=== PATIENT | female | born 1995 | race Caucasian/White ===

== ENCOUNTER 2018-05-27 05:00 | Inpatient (IN) | payer MEDICAID, SELFPAY ==
[2018-05-27] MEDS: Lactated Ringers 1,000 ML 50 ML IV ×2 (05:40→06:20)
[2018-05-27 06:17] LABS: Hematocrit 33.8 % (37-47); Hemoglobin 10.7 g/dl (12.0-15.0); Mean Corp Hgb Conc 31.7 g/gl (32-36); Mean Corpuscular Hgb 25.9 pg (27.0-32.0); Mean Corpuscular Volume 81.8 fL (81-99); Mean Platelet Vol. 10.3 fl (6.2-12.0); Platelet Count 252 K/mm3 (150-450); RBC Distribution Width CV 14.9 % (11.6-14.6); Red Blood Count 4.13 M/mm3 (4.2-5.4); Scan Indicated on CBC? Y/N NO; White Blood Count 12.8 K/mm3 (4.4-11.0)
[2018-05-27 06:37] VITALS: BMI 30.5
[2018-05-27] MEDS: fentaNYL-bupivacaine (epidural) 100 ML BAG EPIDURAL (06:42)
--- NOTE | 2018-05-27 06:52 | NURSING ---
0651-limited care d/t insurance, only had 2 visits.
--- NOTE | 2018-05-27 07:24 | PCM.HP.OB ---
- Problem List (1) Insufficient care Status: Acute (2) Active labor at term Status: Acute (3) Short interval between pregnancies affecting , antepartum Status: Acute History Date of Admission: 05/27/18 Final MARITZA: 05/22/18 Final MARITZA Source: LMP Gestational age: 40 Weeks and 5 Days History of this : This is a 23 year-old, G [2], P [1001], at 40 weeks gestational age. Presented to L&D with contractions that started at 0400 this am and arrived at [facility] at 0500 and 6cm. No family at bedside. Allergies No Known Allergies Allergy (Verified 05/27/18 06:20) Home Medications: Home Medications Pnv No.103/Folic/Om3s/Fish Oil [ Gummies] 2 each PO 05/27/18 Smoking Status: Never smoker Alcohol: None Number of Fetus(es): 1 Heart Tracin, moderate variability, accels, no decels, Category 1 TOCO: every 2-3 minutes History Past Pregnancies: Past Pregnancies Delivery Date Name GA/Weeks Outcome Route Weight Infant Gender Labor Length Anesthesia Delivery Location Provider FOB Labs: GC/CT negative A positive RPR nonreactive HBsAG negative Rubella Immune HIV nonreactive GBS unknown-not done Anatomy U/S at 24week with incomplete views of heart, right and left humeus, right and left lower arms and hands. Rest of anatomy appears normal. Expected Infant Delivery Method: Spontaneous Vaginal Review of Systems Constitutional: Denies: Chills, Fever, Weight Change HEENT: Denies: Head Aches, Sinus Congestion, Sinus Drainage Cardiovascular: Denies: Chest Pain, Palpitations Respiratory: Denies: Cough, Shortness of breath at rest, Sputum production Gastrointestinal: Denies: Nausea, Vomiting Genitourinary: Denies: Dysuria Neurological: Denies: Numbness, Tingling, Focal weakness Psychiatric: Denies: Anxiety, Depression, Homicidal Ideations, Suicidal Ideations Physical Exam General: Alert, Oriented x3 HEENT: Atraumatic, Normocephalic Cardiovascular: Regular rate, Regular Rhythm, No murmurs Lungs: Clear to auscultation, Normal air movement, No rhonchi, No wheeze Abdomen: Gravid Extremities:: No edema Neurological: Deep Tendon Reflexes 2+/4 and Symmetrical. Negative for: Clonus TOBACCO SCRAP SIFTER: Normal external genitalia Estimated gestational size: Appropriate for gestational size Presentation: Cephalic Cervix Dilation (cm): 8 - per nursing Station: -2 Effacement (%): 85 Assessment/Plan All Active Problems Insufficient care (Acute) Active labor at term (Acute) Short interval between pregnancies affecting , antepartum (Acute) This is a 23 year-old, G [2], P [1001], at 40 weeks gestational age. A:Active Labor Category 1 FHT P:1) Admit to L&D 2) Routine labs. Urine tox screen. Epidural for pain management. 3) GBS unknown, rapid GBS sent 4) to manage labor, notified of limited PN care and patient status.
--- NOTE | 2018-05-27 07:31 | HP.PCM_ITS ---
- Problem List (1) Insufficient care Status: Acute (2) Active labor at term Status: Acute (3) Short interval between pregnancies affecting , antepartum Status: Acute History Date of Admission: 05/27/18 Final MARITZA: 05/22/18 Final MARITZA Source: LMP Gestational age: 40 Weeks and 5 Days History of this : This is a 23 year-old, G [2], P [1001], at 40 weeks gestational age. Presented to L&D with contractions that started at 0400 this am and arrived at [facility] at 0500 and 6cm. No family at bedside. Allergies No Known Allergies Allergy (Verified 05/27/18 06:20) Home Medications: Home Medications Pnv No.103/Folic/Om3s/Fish Oil [ Gummies] 2 each PO 05/27/18 Smoking Status: Never smoker Alcohol: None Number of Fetus(es): 1 Heart Tracin, moderate variability, accels, no decels, Category 1 TOCO: every 2-3 minutes History Past Pregnancies: Past Pregnancies Delivery Date Name GA/Weeks Outcome Route Weight Infant Gender Labor Length Anesthesia Delivery Location Provider FOB Labs: GC/CT negative A positive RPR nonreactive HBsAG negative Rubella Immune HIV nonreactive GBS unknown-not done Anatomy U/S at 24week with incomplete views of heart, right and left humeus, right and left lower arms and hands. Rest of anatomy appears normal. Expected Infant Delivery Method: Spontaneous Vaginal Review of Systems Constitutional: Denies: Chills, Fever, Weight Change HEENT: Denies: Head Aches, Sinus Congestion, Sinus Drainage Cardiovascular: Denies: Chest Pain, Palpitations Respiratory: Denies: Cough, Shortness of breath at rest, Sputum production Gastrointestinal: Denies: Nausea, Vomiting Genitourinary: Denies: Dysuria Neurological: Denies: Numbness, Tingling, Focal weakness Psychiatric: Denies: Anxiety, Depression, Homicidal Ideations, Suicidal Ideations Physical Exam General: Alert, Oriented x3 HEENT: Atraumatic, Normocephalic Cardiovascular: Regular rate, Regular Rhythm, No murmurs Lungs: Clear to auscultation, Normal air movement, No rhonchi, No wheeze Abdomen: Gravid Extremities:: No edema Neurological: Deep Tendon Reflexes 2+/4 and Symmetrical. 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 A:Active Labor Category 1 FHT P:1) Admit to L&D 2) Routine labs. Urine tox screen. Epidural for pain management. 3) GBS unknown, rapid GBS sent 4) to manage labor, notified of limited PN care and patient status.
[2018-05-27 07:35] LABS: Group B Strep DNA By PCR Negative (Negative); Internal Control PASS; Probe Check PASS; Specimen Processing Control PASS
--- NOTE | 2018-05-27 07:57 | PCM.PN.BLA ---
Progress Note pt seen at bedside VE performed- AROM performed clear fluid. after discussion with patient only had 2 visit with [facility] in [place]- EDC 05/27/18 based on LMP, 20 wk ultrasound states 05/22/18 as EDC. reviewed with patient that only difference of 5 days will keep EDC 05/27/18. Epidural in place and patient is comfortable.
[2018-05-27 08:49] LABS: Amphetamine Urine VISTA NEGATIVE (<1000 ng/mL); Barbiturate Urine VISTA NEGATIVE (< 200 ng/mL); Benzodiazepine Urine VISTA NEGATIVE (< 200 ng/mL); Cocaine Urine VISTA NEGATIVE (< 300 ng/mL); Ecstacy Urine VISTA NEGATIVE (< 500 ng/mL); Methadone Urine VISTA NEGATIVE (< 300 ng/mL); PCP Urine VISTA NEGATIVE (< 25 ng/mL); THC Urine VISTA NEGATIVE (< 50 ng/mL); Vista UDS pH Range 7
[2018-05-27] MEDS: Ondansetron 4 MG/2 ML Vial IV (09:01)
[2018-05-27] MEDS: Oxytocin 30 units/NS 500 ml 30 UNITS/500 ML IV.SOLN 334 UNITS IV (10:22)
--- NOTE | 2018-05-27 10:42 | PCM.OB.VAG ---
Vaginal Delivery Maternal Presentation: Active Labor Amniotic Membrane Rupture Type: Artificial Amniotic Fluid Description: Clear Final MARITZA: 05/27/18 Final MARITZA Source: LMP Gestational age: 40 Weeks and 0 Days Date of Procedure: 05/27/18 Pre-Operative Diagnosis: term gestation, poor care, active labor Post-Operative Diagnosis: same, live male Surgery/ Procedure Performed: Spontaneous Vaginal Delivery Type of Anesthesia: Epidural Description of Procedure: Head delivered, shoulder dystocia recognized- legs placed in Delia position, extra staff called- anterior shoulder not released with Delia- Suprapubic pressure applied and at this time shoulder released and delivered with gentle downward traction. Shoulder dystocia time approx 5 seconds- vigorous at time of delivery. Delayed cord clamping performed. Placenta delivered without complications. Presentation: Vertex Placental Delivery Description: Spontaneous Placenta Disposition: [facility] Cord Vessel Description: 3 Vessels Cord Entanglement: None Drain: Heath to straight drain Estimated Blood Loss: 250 A gender: Male (1 minute): 8 (5 minute): 8 Episiotomy Description: None Laceration: Vaginal Extension/lac - repaired with 2-0 vicryl - bleeding noted- figure of eight suture placed for hemostasis, 1st degree Medications given after delivery: IV Pitocin Complications: - - mild shoulder dystocia - delivered with delia and suprapubic pressure
--- NOTE | 2018-05-27 10:46 | OP.PCM_ITS ---
Vaginal Delivery Maternal Presentation: Active Labor Amniotic Membrane Rupture Type: Artificial Amniotic Fluid Description: Clear Final MARITZA: 05/27/18 Final MARITZA Source: LMP Gestational age: 40 Weeks and 0 Days Date of Procedure: 05/27/18 Pre-Operative Diagnosis: term gestation, poor care, active labor Post-Operative Diagnosis: same, live male Surgery/ Procedure Performed: Spontaneous Vaginal Delivery Type of Anesthesia: Epidural Description of Procedure: Head delivered, shoulder dystocia recognized- legs placed in Delia position, extra staff called- anterior shoulder not released with Delia- Suprapubic pressure applied and at this time shoulder released and delivered with gentle downward traction. Shoulder dystocia time approx 5 seconds- vigorous at time of delivery. Delayed cord clamping performed. Placenta delivered without co mplications. Presentation: Vertex Placental Delivery Description: Spontaneous Placenta Disposition: [facility] Cord Vessel Description: 3 Vessels Cord Entanglement: None Drain: Heath to straight drain Estimated Blood Loss: 250 A gender: Male (1 minute): 8 (5 minute): 8 Episiotomy Description: None Laceration: Vaginal Extension/lac - repaired with 2-0 vicryl - bleeding noted- figure of eight suture placed for hemostasis, 1st degree Medications given after delivery: IV Pitocin Complications: - - mild shoulder dystocia - delivered with delia and suprapubic pressure
[2018-05-27] MEDS: Oxytocin 30 units/NS 500 ml 30 UNITS/500 ML IV.SOLN 167 UNITS IV (10:53)
[2018-05-27] MEDS: 0.9% Saline Lock 10 ML Syringe IV (11:51)
[2018-05-27 16:00] VITALS: BP 110/62; PULSE 96; RESP 16; TEMP 37.9
[2018-05-27 16:30] VITALS: TEMP 36.6
[2018-05-27] MEDS: Ibuprofen 600 MG Tablet PO (17:29)
[2018-05-27 20:20] VITALS: BP 116/67; PULSE 83; RESP 16; TEMP 37.6; O2SAT 97
[2018-05-27] MEDS: Acetaminophen 500 MG Tablet 1000 MG PO (20:30)
[2018-05-28] VITALS: BP 105/70; PULSE 91; RESP 14; TEMP 36.9; O2SAT 97
[2018-05-28 04:00] VITALS: BP 103/59; PULSE 90; RESP 16; TEMP 37; O2SAT 96
--- NOTE | 2018-05-28 07:55 | PCM.PN.OB ---
Patient Problems: Active and Suspected Problems Insufficient care (Acute) Active labor at term (Acute) Short interval between pregnancies affecting , antepartum (Acute) Subjective: pt seen at bedside, doing well. pt reports good pain control. lochia mild. Breast feeding well. - Physical Exam General: Alert, Oriented x3 Abdomen: Soft, Non Tender, Non-Distended, - - fundus firm Extremities: No Calf Tenderness Vital Signs Temp Pulse Resp BP Pulse Ox 98.6 F 90 16 103/59 L 96 05/28/18 04:00 05/28/18 04:00 05/28/18 04:00 05/28/18 04:00 05/28/18 04:00 Oxygen Delivery Method Room Air Weight: 75.8 kg Body Mass Index (BMI) 30.5 Intake and Output for Last 24 Hours 05/26/18 05/27/18 05/28/18 23:59 23:59 23:59 Intake Total 1941 / 1941 Output Total 800 / 800 Balance 1141 / 1141 Laboratory Tests Past 24 Hrs 05/27/18 08:00 Urine Opiates Screen NEGATIVE Urine Methadone Screen NEGATIVE Ur Barbiturates Screen NEGATIVE Ur Phencyclidine Scrn NEGATIVE Ur Amphetamines Screen NEGATIVE U Methamphetamin-MDMA NEGATIVE U Benzodiazepines Scrn NEGATIVE Urine Cocaine Screen NEGATIVE U Cannabinoids Screen NEGATIVE Ur Drug Screen Comment Medical Necessity - Tobacco Use Smoking Status: Never smoker Assessment/Plan All Active Problems Insufficient care (Acute) Active labor at term (Acute) Short interval between pregnancies affecting , antepartum (Acute) PPD#1, doing well routine care pain mgmt dc home today
--- NOTE | 2018-05-28 07:58 | DCINST_ITS ---
Discharge Diet: No Restrictions Discharge Activity: Return to Normal Activity, May not drive while taking narcotic pain medications., May Shower May resume sexual activity in: 4-6 weeks Additional Activity Instructions:: Nothing in the vagina for 4-6 weeks. You may return to work/school in 6 weeks. Call your doctor if your incision/area has: Continuous Slow Oozing, Sudden Increased Bleeding, Increased Pain/ Swelling, Increased Redness, Foul Smelling Discharge Additional Instructions: If you experience any of the following, contact your healthcare provider. * Bleeding that soaks a pad every hour for 2 hours * Fever 100.4 or higher * Unrelieved incision or abdominal pain * Swelling, redness, discharge or bleeding from your incision or episiotomy site * Your incision begins to separate * Problems urinating (including inability to urinate or burning while urinating). * Visual changes * Severe headache * Flu-like symptoms * Pain or redness in one of both of your breasts * Pain, warmth, tenderness or swelling in your legs, especially the calf area * Frequent nausea and vomiting * Symptoms of depression or anxiety If you experience any of the following, call 911 or go to the nearest Emergency Room. * Chest pain * Problems breathing * Seizure activity * Partial or complete paralysis of a body part, slurred speech, weakness or drooping of the face, or a sudden inability to walk or hold your balance Allergies/Adverse Reactions: Allergies No Known Allergies Allergy (Verified 05/27/18 06:20) Medications to take at Discharge Pnv No.103/Folic/Om3s/Fish Oil [ Gummies] 2 each PO 05/27/18 When: Call to make an appointment with your doctor in 6 weeks. If you had elevated Blood Pressure or 4th degree laceration you will need to be seen in 2 weeks. Test Results: Test results from this visit will be discussed in further detail at your follow- up appointment, if applicable.
[2018-05-28 08:58] VITALS: BP 103/57; PULSE 86; RESP 16; TEMP 36.8
[2018-05-28] MEDS: Ibuprofen 600 MG Tablet PO (09:07)
[2018-05-28] MEDS: Senna/Docusate Sodium 1 Tablet PO (09:08)
[2018-05-28 14:45] VITALS: BP 112/64; PULSE 97; RESP 12; TEMP 36.9
--- NOTE | 2018-05-28 17:16 | CASEMGMT ---
Social Work Assessment Labor and Delivery Unit Date of Referral: 05/27/2017 Time of Referral: 1630 Referred By: Monica Jordan RN; Dr. Thompson Date of Intervention: 05/28/2018 Time of Intervention: 1410 Reason for Referral: limited care; history of child loss History obtained from: medical records, mother of baby (MOB) and father of baby (FOB). Household composition: MOB and FOB report to live together in a home, no issues with housing or necessities to live. MOB and FOB intend to take baby to this home at discharge. Patient's parent/guardian status: Alexander DOAN (age 22) is to FOKhai Mccoy (age 22) for 2.5 years. Privately, OLIMPIA denies any form of abuse, control, or intimidations in this relationship and describes FOB as ?the best .? MOB and FOB share two children together. Ema was born in the end of 2016/beginning of 2017. Ema unexpectedly in November of 2017. , who delivered this admission is to be named Kartik Guzman. Medical History: OLIMPIA is G2, P1 to 2 after delivering Kartik. care was limited to scant with 2 visits, one at 20 weeks (December) and then another at 23.6 weeks (January). care this at [facility] O[facility]YN office. Baby born at 40.5 weeks, weighed 8 pounds 11 ounces, Apgars 8 and 8 at 1 and 5 minutes of life. Educational Status: MOB reports completed through the 9th or 10th grade, that was home schooled. MOB denies any issues with reading, writing or learning comprehension. Financial Status: OLIMPIA used to work in retail, not currently employed. FOB works fulltime. Supplies: Report to have needed supplies including car seat, crib, bassinet, diapers, wipes, breast pump. Childcare/Caregiver(s): MOB and then help from FOB and from family when needed. Transportation: No reported issues. Programs/Agencies Involved: OLIMPIA has Medicaid at this time. NO other agency involvement currently. Parents do agree to have a referral to the [facility] for a nurse visit. Children Services/Legal Issues: MOB denies any history of children services involvement. BREANNE has had recent legal charges related to Ema?s and is now on probation, no fci time served. Behavioral Health Issues: Mental Health History: MOB denies any history of depression, anxiety, or depression, but reports some fluctuations in mood after Ema . MOB reports no more than to be expected after the of a child however. MOB denies ever having any thoughts of suicide. No thoughts of harm to others endorsed either. Substance Use History: MOB denies any history of substance use, legal or illicit. MOB denies history of tobacco use. MOB also denies history for the FOB. Drug Screens: Maternal drug screen done and negative on 05-27-18. Baby urine drug screen done, negative. Meconium is pending. Family/Social Stressors: Closely spaced pregnancies, with first child dying at 6-7 months old in the summer of 2017. During conversation with parents together, FOB reports to be responsible for the child?s ; not much information offered otherwise, and social organization professor observed this was a tense subject for FOB. Privately MOB able to expand on situation in that baby was in FOB?s care the day of baby?s and that FOB forgot about the baby (child after being left for prolonged period in a car). MOB reports FOB has been charged, no restrictions on FOB being able to around children, no fci time served, and that FOB is on probation. During identified stressors above, the parents moved from [place] to [facility]. Also lack of care this , FOB reports due to issues with insurance an accessing Medicaid after losing private insurance. Support Systems: MOB and FOB both report to have good support system from both side of the family, both sets of parents, and confucianism family. MOB reports emotional support from FOB, MOB?s mom and sister. Depression/Shaken Baby/Safe Sleeping: MOB and FOB both reports knowledge of safe sleeping and able to give appropriate response on shaken baby prevention. Talked with MOB and FOB both about risk for depression, in both parents. Discussed risk factors and importance of seeking out help and support should symptoms arise. ASSESSMENT: Met with MOB and FOB together. Both pleasant and cooperative, engaging in conversation. FOB did tend to answer questions, but also respectful of MOB responding to questions. Mannerisms for both calm. Both teary eyed when talking about the loss of first child. FOB appearing tense when discussing of daughter and though not communication many details did voice being responsible for the child?s . FOB relaxed when social indicated that will not make FOB go through all the details of the situation. Privately, MOB tearful, did seem more relaxed and answered social organization professor?s questions about why FOB feels responsible for the child?s passing. MOB voiced that has no safety concerns with FOB, and reports that FOB was an attentive father to the first child and helpful to MOB in caring for the baby. MOB acknowledges that has had stress, and that emotions have been up and down during the . MOB receptive to taking resource information but declines actual referrals for counseling. MOB and FOB both reports that the confucianism has been very supportive in helping the parents with grief issues related to the child?s passing. MOB and FOB both agree to nurse visit. Accepted [facility] brochure as well as [facility] resources list and depression packet. Did let MOB know that sometimes children services do make home visits to families to ensure that all is being take care of and that parents are able to provide for the children. Let MOB know that it is a possibility that children services may follow up with family, considering nature of first child?s , to make sure parents are doing okay on care of baby. MOB reports that had been thinking this could be a possibility and accepted this possibility without issues. MOB and FOB both deny needs or concerns with home going. Emotional support given to parents in relation to loss of first child and stressor have occurred this past year. Update news gathering technician. Updated staff nurse. PLAN: MOB and baby to home. Resource packets provides for home going. Will call [facility] Children service due to history of child?s and limited care this . Will makes a nurse visit referral to [facility] Department. -RAISSA Melgar, PAYROLL TECHNICIAN
--- NOTE | 2018-05-28 17:16 | CASEMGMT ---
Addendum entered and electronically signed by Lois Hudson 06/05/18 16:44: 1. - mandated reproter letter received and no case being opened based on referral made though information documented in case of future concern. -JOSE Melgar, RESIDENT SERVICES SUPERVISOR Original Note: Social Work Labor and Delivery Referral to Yris Puckett at [facility] Children Services, . Referral due to limited care and due to mother of baby?s (MOB) first child dying just a few months ago, summer after being left in a car. Brief maternal and histories provided. Children services made aware of discharge timeframe of today or tomorrow. Plan: Make referral to [facility] for nurse visit. -JOSE Melgar, RESIDENT SERVICES SUPERVISOR
--- NOTE | 2018-05-30 08:17 | CASEMGMT ---
Social work Labor and Delivery Unit Faxed nurse visit to the [facility] on 05.29.18 at 1000. Faxed to confirmed fax at [phone]. No other services requested or indicted. -JOSE Melgar, SUBWAY GUARD
== END 2018-05-28 17:35 | disposition home or self-care (01) | DRG 560 ==
PROVIDERS: Advanced Practice Midwife; Obstetrics & Gynecology; Admitting Provider Obstetrics & Gynecology; Referring Provider Obstetrics & Gynecology; Visit Provider Obstetrics & Gynecology
DX: O66.0 Obstructed labor due to shoulder dystocia (principal); Z3A.40 40 weeks gestation of pregnancy; Z37.0 Single live birth; O70.0 First degree perineal laceration during delivery
CPT/HCPCS: 59050; 76815; 80307; 85027; 86850; 86900; 87081; 87653; 99218; J7120; A4216; G0378; J2405

== ENCOUNTER → 2020-05-23 | Outpatient (CLI) | payer MEDICAID, SELFPAY ==
[2020-05-26 03:07] LABS: Chlamydia By Nucleic Acid AMP Negative (Negative)
[2020-05-26 15:16] LABS: Gonococcus By Nucleic Acid AMP Negative (Negative)
[2020-05-27 21:42] LABS: HPV Reflexed? NOT INDICATED
== END | disposition home or self-care (01) ==
LOC: LABSPEC 16:27
PROVIDERS: Visit Provider Student in an Organized Health Care Education/Training Program
DX: Z32.01 Encounter for pregnancy test, result positive (principal); Z12.4 Encounter for screening for malignant neoplasm of cervix; Z11.3 Encounter for screening for infections with a predominantly sexual mode of transmission
CPT/HCPCS: 87491; 87591; 88175; G0145

== ENCOUNTER → 2020-06-03 15:50 | Outpatient (CLI) | payer MEDICAID, SELFPAY ==
[2020-06-03 16:18] LABS: Absolute Lymphocyte Count 1.36 X10^3/uL (0.83-4.51); Absolute Neutrophil Count 4.4 X10^3/uL (2.0-7.7); Basophil# 0.02 X10^3/uL; Basophil% 0.3 % (0-1); Eosinophil# 0.07 X10^3/uL; Eosinophils% 1.1 % (0-5); Hematocrit 38.4 % (37-47); Hemoglobin 12.6 g/dL (12.0-15.0); Lymphocyte # 1.36 X10^3/ul (4.0); Lymphocyte % 21.5 % (19-41); Mean Corp Hgb Conc 32.8 g/dL (32-36); Mean Corpuscular Hgb 28.6 pg (27.0-32.0); Mean Corpuscular Volume 87.1 fL (81-99); Monocyte# 0.43 X10^3/uL; Monocyte% 6.8 % (0-10); NRBC Flagged by Analyzer 0 % (0-5); Neutrophil # 4.42 X10^3/uL (2.7-7.7); Platelet Count 287 K/mm3 (150-450); RBC Distribution Width CV 13.3 % (11.6-14.6); RBC Distribution Width SD 42.4 fl (35.1-43.9); Red Blood Count 4.41 M/mm3 (4.2-5.4); White Blood Count 6.3 K/mm3 (4.4-11.0)
[2020-06-06 10:25] LABS: HIV - WCH Non-Reactive (Nonreactive); Hepatitis B Surface Antigen Non-Reactive (Nonreactive); Hepatitis C Antibody Non-Reactive (Nonreactive); Rubella IgG Reactive (Nonreactive)
[2020-06-09 03:02] LABS: Prenatal RPR NONREACTIVE (NONREACTIVE)
== END ==
PROVIDERS: Visit Provider Student in an Organized Health Care Education/Training Program
DX: Z34.91 Encounter for supervision of normal pregnancy, unspecified, first trimester (principal)
CPT/HCPCS: 36415; 85025; 86703; 86762; 86803; 87086; 87088; 87340

== ENCOUNTER → 2020-09-08 08:56 | Outpatient (CLI) | payer MEDICAID, SELFPAY ==
[2020-09-08 12:19] LABS: Hematocrit 36.2 % (37-47); Hemoglobin 11.2 g/dL (12.0-15.0); Mean Corp Hgb Conc 30.9 g/dL (32-36); Mean Corpuscular Volume 90.5 fL (81-99); Mean Platelet Vol. 10.7 fl (6.2-12.0); Platelet Count 242 K/mm3 (150-450); RBC Distribution Width CV 13.5 % (11.6-14.6); RBC Distribution Width SD 45.1 fl (35.1-43.9); White Blood Count 6.2 K/mm3 (4.4-11.0)
[2020-09-08 12:24] LABS: Glucose Challenge Gest 1H 50g 134 mg/dL (70-140)
== END ==
PROVIDERS: Visit Provider Student in an Organized Health Care Education/Training Program
DX: Z34.82 Encounter for supervision of other normal pregnancy, second trimester (principal)
CPT/HCPCS: 36415; 82950; 85027

== ENCOUNTER → 2020-12-05 | Outpatient (CLI) | payer MEDICAID, SELFPAY | END | disposition home or self-care (01) | LOC: LABSPEC 11:45 | PROVIDERS: Visit Provider Obstetrics & Gynecology | DX: Z36.85 Encounter for antenatal screening for Streptococcus B (principal) | CPT/HCPCS: 87081 ==

== ENCOUNTER 2021-01-01 02:40 | Inpatient (IN) | payer MEDICAID, SELFPAY ==
[2021-01-01] VITALS (47 sets, daily range): BP systolic 108–194; BP diastolic 56–139; PULSE 46–122; RESP 16–18; TEMP 36.9–37.3; O2SAT 83–100; BMI 29.9
[2021-01-01] MEDS: Lactated Ringers 500 ML 999 ML IV ×2 (02:45→03:52)
[2021-01-01 02:58] LABS: Absolute Lymphocyte Count 2.45 X10^3/uL (0.83-4.51); Absolute Neutrophil Count 7.3 X10^3/uL (2.0-7.7); Basophil# 0.04 X10^3/uL; Basophil% 0.4 % (0-1); Eosinophil# 0.06 X10^3/uL; Eosinophils% 0.6 % (0-5); Hemoglobin 12.4 g/dL (12.0-15.0); Lymphocyte # 2.45 X10^3/ul (0.83-4.51); Lymphocyte % 22.8 % (19-41); Mean Corpuscular Hgb 26.4 pg (27.0-32.0); Mean Corpuscular Volume 85.1 fL (81-99); Mean Platelet Vol. 11.2 fl (6.2-12.0); Monocyte# 0.77 X10^3/uL; Monocyte% 7.2 % (0-10); NRBC Flagged by Analyzer 0 % (0-5); Neutrophil # 7.33 X10^3/uL (2.7-7.7); Neutrophil % 68.1 % (47-70); Platelet Count 235 K/mm3 (150-450); RBC Distribution Width CV 14.9 % (11.6-14.6); RBC Distribution Width SD 45.9 fl (35.1-43.9); White Blood Count 10.8 K/mm3 (4.4-11.0)
[2021-01-01] MEDS: Ondansetron 4 MG/2 ML Vial IV (03:04)
[2021-01-01] MEDS: Lactated Ringers 1,000 ML 200 ML IV (03:16)
[2021-01-01] MEDS: fentaNYL-bupivacaine (epidural) 100 ML BAG EPIDURAL (03:55)
--- NOTE | 2021-01-01 04:49 | PCM.HP.OB ---
HPI - General General Date of Admission: 01/01/21 HPI Narrative MYRA LEARY, is a 25 F who presents in labor at 6/80/-2 on arrival. Maternal Data Information MARITZA Calculator Estimated Delivery Date Method Current WG Current Estimate 12/29/20 Manual 40w 3d PFSH PFSH Medical History Appendicitis Home Medications with DHA-Folic Acid 2 ea PO DAILY 05/27/18 [History Last Taken 1 Week Ago ~12/25/20] Allergy/AdvReac Type Severity Reaction Status Date / Time Penicillins Allergy Hives Verified 01/01/21 03:12 Surgical History Hx of appendectomy Social History Smoking Status: Never smoker History 4 Elective abortions 0 Hx Para 1 Spontaneous abortions 1 Hx # Term Pregnancies 2 Ectopic pregnancies 0 Hx # Pregnancies 0 Multiple births 0 # of living children 1 NST FHR Rate Baby A Baseline: 140 Variability:: Moderate Accelerations:: 15 x 15 Decelerations:: None NST Reactive:: Yes FHR Category:: Category I Uterine Activity:: 5/10 Vital Signs Vital Signs Vital Signs: 01/01/21 02:33 01/01/21 03:35 01/01/21 03:40 Temperature 98.8 F Temperature Source Temporal Pulse Rate 91 108 H 94 Blood Pressure 133/92 H 131/87 H 153/94 H BP Systolic 133 131 153 BP Diastolic 92 87 94 Pulse Ox 97 97 01/01/21 03:45 01/01/21 03:46 01/01/21 03:50 Temperature Temperature Source Pulse Rate 105 H 114 H Blood Pressure 129/73 H BP Systolic 129 BP Diastolic 73 Pulse Ox 93 99 01/01/21 03:51 01/01/21 03:52 01/01/21 03:55 Temperature Temperature Source Pulse Rate 100 110 H 92 Blood Pressure 194/139 H 136/69 H 126/84 H BP Systolic 194 136 126 BP Diastolic 139 69 84 Pulse Ox 96 01/01/21 03:59 01/01/21 04:00 01/01/21 04:05 Temperature Temperature Source Pulse Rate 88 89 Blood Pressure 126/58 H 119/64 BP Systolic 126 119 BP Diastolic 58 64 Pulse Ox 84 99 87 01/01/21 04:06 01/01/21 04:10 01/01/21 04:11 Temperature Temperature Source Pulse Rate 87 85 92 Blood Pressure 122/72 H 117/63 BP Systolic 122 117 BP Diastolic 72 63 Pulse Ox 99 100 01/01/21 04:16 01/01/21 04:17 01/01/21 04:18 Temperature 98.4 F Temperature Source Temporal Pulse Rate 102 H 98 Blood Pressure BP Systolic BP Diastolic Pulse Ox 94 88 01/01/21 04:19 01/01/21 04:21 01/01/21 04:22 Temperature Temperature Source Pulse Rate 101 H 98 Blood Pressure 108/67 115/60 BP Systolic 108 115 BP Diastolic 67 60 Pulse Ox 100 01/01/21 04:26 01/01/21 04:31 01/01/21 04:36 Temperature Temperature Source Pulse Rate 100 96 102 H Blood Pressure BP Systolic BP Diastolic Pulse Ox 100 100 99 01/01/21 04:41 01/01/21 04:46 Temperature Temperature Source Pulse Rate 94 107 H Blood Pressure BP Systolic BP Diastolic Pulse Ox 100 100 Weight Weight: 75.478 kg Body Mass Index (BMI) 29.9 Physical Exam Const alert, oriented x3 and no apparent distress Resp normal respiratory effort Cardio regular rate and regular rhythm GI soft to palpation and non-tender Inspection: gravid external exam normal Narrative: /-1, CEPHALIC, VILMA Labs Labs Labs: Blood Type A POSITIVE Antibody Screen NEGATIVE Hct 40.0 % (37-47) Hgb 12.4 g/dL (12.0-15.0) Rubella IgG Antibody Reactive (Nonreactive) Hep Bs Antigen Non-Reactive (Nonreactive) Neisseria gonorrhoeae DNA (MERCEDES) Negative (Negative) HIV 1&2 Antibody Non-Reactive (Nonreactive) Glucose 1 Hr 50 gm 134 mg/dL (70-140) Group B Strep DNA Negative (Negative) Rhogam given: No Assessment & Plan (1) Active labor at term: PLAN: Epidural obtained Anticipate (2) 40 weeks gestation of :
[2021-01-01] MEDS: Oxytocin 30 units/NS 500 ml 30 UNITS/500 ML IV.SOLN 334 UNITS IV (06:35)
--- NOTE | 2021-01-01 06:48 | EX.PCM.OBRPT ---
Assessment & Plan (1) (spontaneous vaginal delivery): Maternal Data Information MARITZA Calculator Estimated Delivery Date Method Current WG Current Estimate 12/29/20 Manual 40w 3d Vaginal Delivery Maternal Presentation Maternal Presentation: Active Labor Operative Information Date of Procedure: 01/01/21 Pre-Operative Diagnosis: 40 3/7 weeks gestation Post-Operative Diagnosis: 40 3/7 weeks gestation Surgery / Procedure Performed: Spontaneous Vaginal Delivery Type of Anesthesia: Epidural Anesthesiologist: Axel Galvan Drain: Heath to straight drain Estimated Blood Loss: 100 ml Time of Delivery: 06:30 Findings Description of Procedure: Patient was fully dilated and +2 station on my arrival. She pushed over 2 contractions to deliver a female infant in OA over an intact perineum. The was placed on the maternal abdomen and further attended by nursery personnel. The cord was doubly clamped and cut at approximately 4 minutes of life. The placenta delivered spontaneously and appeared intact on inspection. Bimanual intrauterine exam was performed. There was good hemostasis. Sponge count correct x2. Presentation: Vertex Amniotic Membrane Rupture Type: Spontaneous Time of Membrane Rupture: 01/01/21 032h Amniotic Fluid Description: Clear Placental Delivery Description: Spontaneous Placenta Disposition: [facility] Cord Vessel Description: 3 Vessels Cord Entanglement: None Infant A Gender: Female (1 minute): 8 (5 minute): 9 Delayed Cord Clamping: Yes Post Vaginal Delivery Medications Given After Delivery: IV Pitocin Episiotomy Description: None Laceration: None Complication Complications: None
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
[2021-01-01] MEDS: 0.9% Saline Lock 10 ML Syringe IV (09:17)
--- NOTE | 2021-01-01 10:11 | NURSING ---
1005- ocampo cath removed, instructed on measuring the next two voids.
[2021-01-01] MEDS: Ibuprofen 600 MG Tablet PO ×2 (14:13→20:31)
[2021-01-02 00:06] VITALS: BP 122/74; PULSE 73; O2SAT 98
[2021-01-02 00:16] VITALS: BP 122/74; PULSE 75; RESP 16; TEMP 36.7; O2SAT 98
[2021-01-02] MEDS: Ibuprofen 600 MG Tablet PO (02:35)
[2021-01-02 04:32] VITALS: BP 117/71; PULSE 73
[2021-01-02 04:38] VITALS: BP 117/71; PULSE 75; RESP 16; TEMP 36.6; O2SAT 16
[2021-01-02 07:39] VITALS: PULSE 86; O2SAT 98
[2021-01-02 07:40] VITALS: BP 117/65; PULSE 83; PULSE 86; RESP 16; TEMP 36.8; O2SAT 98
--- NOTE | 2021-01-02 08:10 | PCM.PN.OB ---
Subjective Subjective Doing well, no complaints. OOB, ambulating and voiding without difficulty. is going well. Denies heavy lochia. Desires discharge today. Objective Data Objective Data Vital Signs: Vital Signs Temp Pulse Resp BP Pulse Ox 98.2 F 86 16 117/65 98 01/02/21 07:40 01/02/21 07:40 01/02/21 07:40 01/02/21 07:40 01/02/21 07:40 Oxygen Delivery Method Room Air Weight: 75.478 kg Body Mass Index (BMI) 29.9 Intake & Output: Intake and Output for Last 24 Hours 12/31/20 01/01/21 01/02/21 23:59 23:59 23:59 Intake Total 2243.33 / 2243.33 Output Total 2350 / 2350 Balance -106.67 / -106.67 Lab / Micro Data Result Diagrams: 01/01/21 02:45 Micro: Microbiology 01/01/21 03:00 Mucosa - Nose SARS-CoV-2 Antigen (Rapid) - Final Physical Exam Const alert, oriented x3 and no apparent distress General Appearance: cooperative and comfortable HEENT normocephalic Resp normal respiratory effort and normal air movement Auscultation: clear to auscultation bilaterally Cardio regular rate, regular rhythm, S1 normal heart sound and S2 normal heart sound GI soft to palpation, non-tender and non-distended OB / External & Speculum: other Uterus Palpation: other OB Fundus firm and nontender Extremity Extremity Narrative: No edema or calf tenderness Assessment & Plan (1) (spontaneous vaginal delivery): PLAN: A pos, Rub immune hx prior infant loss, case management consultation pending Plan for d/c home later today
--- NOTE | 2021-01-02 08:13 | PCM.DC ---
Discharge Instructions Diet Discharge Diet: No restrictions Activity Discharge Activity: Return to Normal Activity, May Shower and May Take a Tub Bath May resume sexual activity in: 6 weeks Lifting Restrictions: 20-25lb Dressing / Incision Call your doctor if you observe: Fever of 101 or Higher, Using more than 1 pad per hour, Shortness of breath, Chest pain, Calf discomfort, Uncontrolled pain and - (Persistent or severe headache) Follow Up Care Please Follow Up With: Tom Altman MD When: 3 weeks for telehealth follow up 6 weeks for visit See Dr. Tom Altman or Dr. Carlos Alberto Pastrana Test Results: Test results from this visit will be discussed in further detail at your follow-up appointment, if applicable. Discharge Plan Admission Admit Date/Time: 01/01/21 02:40 Primary Reason for Your Visit: Vaginal delivery Attending Provider: Crystal Mayen Instructions Patient Instructions: After a Vaginal , Understanding Depression Discharge Orders/Prescriptions Prescriptions: New ibuprofen 600 mg Tablet 600 mg PO Q8H PRN PRN (Reason: Pain Score 1-3) Qty: 30 RF: 0 Continued with DHA-Folic Acid 1 EACH tablet,chewable 2 ea PO DAILY RF: 0 Disposition Disposition (needs filled in before D/C Order can be placed): Home, Self Care
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
--- NOTE | 2021-01-02 11:42 | NURSING ---
PT refused CPR teaching
== END 2021-01-02 11:40 | disposition home or self-care (01) | DRG 560 ==
LOC: WPOUT 02:40 → WP 02:40
PROVIDERS: Admitting Provider Obstetrics & Gynecology; Referring Provider Obstetrics & Gynecology; Visit Provider Obstetrics & Gynecology
DX: O80 Encounter for full-term uncomplicated delivery (principal); Z3A.40 40 weeks gestation of pregnancy; Z37.0 Single live birth
CPT/HCPCS: 59025; 59050; 85025; 86850; 86900; 86901; 87426; 99218; J7120; A4216; G0378; J2405

== ENCOUNTER 2021-08-14 14:25 | Outpatient (CLI) | payer MEDICAID, SELFPAY | END 2021-08-14 23:59 | disposition home or self-care (01) | LOC: LABSPEC 14:26 | PROVIDERS: Referring Provider Obstetrics & Gynecology; Visit Provider Obstetrics & Gynecology | DX: Z11.3 Encounter for screening for infections with a predominantly sexual mode of transmission (principal) | CPT/HCPCS: 87491; 87591 ==